=== PATIENT | male | born 1995 | race Caucasian/White ===

== ENCOUNTER 2019-07-15 08:47 | Inpatient (IN) | payer OTHER, SELFPAY ==
[2019-07-15] MEDS ORDERED: ONDANSETRON 4 MG/2 ML VIAL ONE (09:34)
[2019-07-15] MEDS ORDERED: NA CHLORIDE 0.9% 1,000 ML ONE ×2 (09:34→10:43)
[2019-07-15] MEDS ORDERED: KETOROLAC 30 MG/ML INJ ONE (09:34)
[2019-07-15 09:56] LABS: Absolute Lymphocytes (CBC) 0.4 K/uL (0.7-4.9); Basophils % 0.3 % (0-1.3); Hematocrit 49.9 % (39.6-49.0); Lymphocytes % 1.7 % (15.3-44.8); MPV 9.4 fL (7.6-11.3); RBC Red Blood Cell Count 6.01 M/uL (4.33-5.43)
[2019-07-15 10:07] LABS: Albumin 4.3 g/dL (3.4-5.0); Bilirubin Direct 0.6 mg/dL (0-0.2); Potassium 3.6 mmol/L (3.5-5.1); Protein, Total 8.6 g/dL (6.4-8.2)
--- NOTE | 2019-07-15 10:56 | RAD REPORT ---
EXAM DESCRIPTION: CT - Stone Protocol - 07/15/2019 10:28 am CLINICAL HISTORY: Flank pain. ABD PAIN COMPARISON: No comparisons TECHNIQUE: Axial images were obtained without oral or IV contrast. Lack of contrast limits solid org an and vascular assessment. The [id number] spans the entirety of the system partially obscuring uppermost abdomen and lung bases. Coronal reformatted images were obtained and reviewed. All CT scans are performed using dose optimization technique as appropriate and may include automated exposure control or mA/KV adjustment according to patient size. FINDINGS: The lower lung buitrago are clear. Imaged portions of the liver and spleen show no suspicious findings on non-contrast imaging. The panc reas and adrenal glands are normal. No pathologic lymphadenopathy in the abdomen or pelvis. No urinar y tract stones or obstructive uropathy. There is distention and fluid-filled small bowel surround the abdomen. This may be related to a diffu se ileus. Fluid-filled distended colon also present. Large calcification measuring 13 mm is present likely representing a large appendicolith. Several air collections in the right lower quadrant are seen. Assessment in this region is limited by lack of co ntrast however the perforated appendicitis is suspected. No significant bony abnormality. IMPRESSION: Large appendicolith is noted in the right lower quadrant with findings suspicious for a perforated appendix. Diffuse distention of large and small bowel which is fluid-filled suspected repr esent a secondary ileus.
--- NOTE | 2019-07-15 11:10 | EDPHYS ---
Physician Documentation [facility] Name: Keenan Lopez Age: 23 yrs Sex: Male : 1995 Arrival Date: 07/15/2019 Time: 08:52 Bed 20 Private MD: ED Physician Jamie Mccall HPI: 07/15 09:27 This 23 yrs old Male presents to ER via Unassigned with complaints of kb Abdominal Pain, Vomiting/Diarrhea, Fever. 09:27 The patient presents with abdominal pain that is diffuse. Onset: The symptoms/episode kb began/occurred 3 day(s) ago. The symptoms do not radiate. Associated signs and symptoms: Pertinent positives: nausea, vomiting, and diarrhea, fever. The symptoms are described as constant, waxing/waning. Modifying factors: The symptoms are alleviated by nothing, the symptoms are aggravated by nothing. Severity of pain: At its worst the pain was moderate in the emergency department the pain is unchanged. The patient has not experienced similar symptoms in the past. The patient has not recently seen a physician. Pt reports he ate some wings at noon on Saturday and felt a knot in his stomach right afterwards. STarted vomiting at 1999 night and continues today. Also reports diarrhea, diffuse abd pain and fever (TMAX 101.4). Historical: - Allergies: 09:28 No Known Allergies; ch - Home Meds: 09: None [Active]; ch - PMHx: : None; ch - PSHx: 09: None; ch - Immunization history:: Adult Immunizations up to date. - Social history:: Smoking status: Patient/guardian denies using tobacco. - Ebola Screening: : Patient negative for fever greater than or equal to 101.5 degrees Fahrenheit, and additional compatible Ebola Virus Disease symptoms Patient denies exposure to infectious person Patient denies travel to an Ebola-affected area in the 21 days before illness onset No symptoms or risks identified at this time. ROS: 09:27 Neck: Negative for injury, pain, and swelling, Cardiovascular: Negative for chest pain, kb palpitations, and edema, Respiratory: Negative for shortness of breath, cough, wheezing, and pleuritic chest pain, Back: Negative for injury and pain, : Negative for injury, bleeding, discharge, and swelling, MS/Extremity: Negative for injury and deformity, Skin: Negative for injury, rash, and discoloration, Neuro: Negative for headache, weakness, numbness, tingling, and seizure. 09: Constitutional: Positive for chills, fever. : Abdomen/GI: Positive for abdominal pain, nausea, vomiting, and diarrhea. Exam: : Constitutional: This is a well developed, well nourished patient who is awake, alert, kb and in no acute distress. Head/Face: Normocephalic, atraumatic. ENT: Nares patent. No nasal discharge, no septal abnormalities noted. Tympanic membranes are normal and external auditory canals are clear. Oropharynx with no redness, swelling, or masses, exudates, or evidence of obstruction, uvula midline. Mucous membranes moist. Neck: Trachea midline, no thyromegaly or masses palpated, and no cervical lymphadenopathy. Supple, full range of motion without nuchal rigidity, or vertebral point tenderness. No Meningismus. Chest/axilla: Normal chest wall appearance and motion. Nontender with no deformity. No lesions are appreciated. Cardiovascular: Regular rate and rhythm with a normal S1 and S2. No gallops, murmurs, or rubs. Normal PMI, no JVD. No pulse deficits. Respiratory: Lungs have equal breath sounds bilaterally, clear to auscultation and percussion. No rales, rhonchi or wheezes noted. No increased work of breathing, no retractions or nasal flaring. Back: No spinal tenderness. No costovertebral tenderness. Full range of motion. Skin: Warm, dry with normal turgor. Normal color with no rashes, no lesions, and no evidence of cellulitis. MS/ Extremity: Pulses equal, no cyanosis. Neurovascular intact. Full, normal range of motion. Neuro: Awake and alert, GCS 15, oriented to person, place, time, and situation. Cranial nerves II-XII grossly intact. Motor strength 5/5 in all extremities. Sensory grossly intact. Cerebellar exam normal. Normal gait. : Abdomen/GI: Inspection: abdomen appears normal, Bowel sounds: normal, in all quadrants, Palpation: soft, in all quadrants, nontender, in the right upper quadrant, moderate abdominal tenderness, in the left upper quadrant, right lower quadrant and left lower quadrant. Vital Signs: : BP 106 / 62; Pulse 130; Resp 22; Temp 99.6(O); Pulse Ox 95% on R/A; Pain 8/10; ch 10:07 BP 105 / 81; Pulse 100; Resp 18; Pulse Ox 97% on R/A; ch 11:48 BP 111 / 86; Pulse 95; Resp 18; Temp 100; Pulse Ox 97% on R/A; Pain 3/10; ch MDM: 09:10 Patient medically screened. kb 09:27 Data reviewed: vital signs, nurses notes. Data interpreted: Pulse oximetry: on room air kb is 100 %. Interpretation: normal. 11:08 Counseling: I had a detailed discussion with the patient and/or guardian regarding: the kb historical points, exam findings, and any diagnostic results supporting the discharge/admit diagnosis, lab results, radiology results, the need for further work-up and treatment in the hospital. Physician consultation: Ephraim Escobar MD was contacted at 11:08, regarding admission, to the medical/surgical unit. patient's condition, and will see patient shortly. 07/15 09:17 Order name: Basic Metabolic Panel; Complete Time: 10:10 kb 07/15 09:17 Order name: CBC with Diff; Complete Time: 11:18 kb 07/15 09:17 Order name: Hepatic Function; Complete Time: 10:10 kb 07/15 09:17 Order name: Lipase; Complete Time: 10:10 kb 07/15 09:17 Order name: Flu; Complete Time: 10:05 kb 07/15 09:17 Order name: Strep; Complete Time: 10:00 kb 07/15 09:17 Order name: [place] Screen Profile; Complete Time: 10:30 kb 07/15 09:58 Order name: Throat Culture EDMS 07/15 10:13 Order name: CT Stone Protocol; Complete Time: 11:01 kb 07/15 11:17 Order name: Manual Differential; Complete Time: 11:18 EDMS 07/15 09:17 Order name: IV Saline Lock; Complete Time: 09:31 kb 07/15 09:17 Order name: Labs collected and sent; Complete Time: 09:31 kb Administered Medications: 09:40 Drug: NS 0.9% 1000 ml Route: IV; Rate: 1000 ml; Site: right forearm; jl7 10:08 Follow up: IV Status: Completed infusion; IV Intake: 1000ml 09:40 Drug: Zofran 4 mg Route: IVP; Site: right forearm; jl7 10:08 Follow up: Response: No adverse reaction; Marked relief of symptoms 09:42 Drug: TORadol - Ketorolac 15 mg Route: IVP; Site: right forearm; jl7 10:08 Follow up: Response: No adverse reaction 10:45 Drug: NS 0.9% 1000 ml Route: IV; Rate: 1000 ml; Site: right forearm; 11:27 Drug: Zosyn 3.375 grams Route: IVPB; Infused Over: 60 mins; Site: right forearm; Disposition: 11:09 Co-signature as Attending Physician, Jamie Mccall MD I agree with the assessment and kdr plan of care. Disposition: 07/15/19 11:09 Hospitalization ordered by Ephraim Escobar for Inpatient Admission. Preliminary diagnosis is Acute appendicitis - with perforation. - Bed requested for Telemetry/MedSurg (Inpatient). - Status is Inpatient Admission. - Condition is Stable. - Problem is new. - Symptoms are unchanged. UTI on Admission? No Signatures: Dispatcher [employer] EDMS Melisa Guthrie, BASKETBALL REFEREE-C BASKETBALL REFEREE-Ckb Rosanne Gill, RN RN Lisa Albarran RN RN Jamie Mccall MD MD [facility] Kirsty Barger RN RN jl7 Corrections: (The following items were deleted from the chart) 12:13 11:09 Hospitalization Ordered by Ephraim Escobar MD for Inpatient Admission. Preliminary diagnosis is Acute appendicitis - with perforation. Bed requested for Telemetry/MedSurg (Inpatient). Status is Inpatient Admission. Condition is Stable. Problem is new. Symptoms are unchanged. UTI on Admission? No. kb 12:25 12:13 07/15/2019 11:09 Hospitalization Ordered by Ephraim Escobar MD for Inpatient Admission. Preliminary diagnosis is Acute appendicitis - with perforation. Bed requested for Telemetry/MedSurg (Inpatient). Status is Inpatient Admission. Condition is Stable. Problem is new. Symptoms are unchanged. UTI on Admission? No. dw
--- NOTE | 2019-07-15 11:10 | ER ---
Nurse's Notes [facility] Name: Keenan Lopez Age: 23 yrs Sex: Male : 1995 Arrival Date: 07/15/2019 Time: 08:52 Bed 20 Private MD: Diagnosis: Acute appendicitis-with perforation Presentation: 07/15 09:27 Presenting complaint: Patient states: abdominal pain diarrhea fever since saturday. Transition of care: patient was not received from another setting of care. Onset of symptoms was July 12, 2019. Risk Assessment: Do you want to hurt yourself or someone else? Patient reports no desire to harm self or others. Initial Sepsis Screen: Does the patient meet any 2 criteria? No. Patient's initial sepsis screen is negative. Does the patient have a suspected source of infection? No. Patient's initial sepsis screen is negative. Care prior to arrival: None. 09:27 Method Of Arrival: Ambulatory 09:27 Acuity: PRIYANK 3 Triage Assessment: 09:28 General: Appears in no apparent distress. uncomfortable, Behavior is cooperative, ch appropriate for age. Pain: Complains of pain in abdomen. Neuro: No deficits noted. GI: Abdomen is flat, non-distended, Bowel sounds present X 4 quads. Abd is soft X 4 quads Abdomen is tender to palpation X 4 quads. Historical: - Allergies: 09:28 No Known Allergies; - Home Meds: :28 None [Active]; ch - PMHx: 09:28 None; ch - PSHx: 09:28 None; - Immunization history:: Adult Immunizations up to date. - Social history:: Smoking status: Patient/guardian denies using tobacco. - Ebola Screening: : Patient negative for fever greater than or equal to 101.5 degrees Fahrenheit, and additional compatible Ebola Virus Disease symptoms Patient denies exposure to infectious person Patient denies travel to an Ebola-affected area in the 21 days before illness onset No symptoms or risks identified at this time. Screenin:06 Abuse screen: Denies threats or abuse. Denies injuries from another. Nutritional jl7 screening: No deficits noted. Tuberculosis screening: No symptoms or risk factors identified. Fall Risk IV access (20 points). Total Milligan Fall Scale indicates No Risk (0-24 pts). Assessment: 10:07 Reassessment: Patient appears in no apparent distress at this time. Patient and/or ch family updated on plan of care and expected duration. Pain level reassessed. Patient is alert, oriented x 3, equal unlabored respirations, skin warm/dry/pink. Patient states feeling better. Patient states symptoms have improved. 11:00 Reassessment: Patient appears in no apparent distress at this time. pt is still pale ch and mildly diaphoretic. pt is quiet in bed. pt states he feels better, but does not feel well. 11:48 Reassessment: Patient appears in no apparent distress at this time. Patient and/or ch family updated on plan of care and expected duration. Pain level reassessed. Patient is alert, oriented x 3, equal unlabored respirations, skin warm/dry/pink. pt has been seen by the surgeon. pt changing and removing all clothes and jewelry Patient states feeling better. Patient states symptoms have improved. General: Appears in no apparent distress. comfortable. Neuro: No deficits noted. Respiratory: Airway is patent Respiratory effort is even, unlabored, Breath sounds are clear bilaterally. GI: No signs and/or symptoms were reported involving the gastrointestinal system. Derm: Skin is pale. Vital Signs: 09:28 BP 106 / 62; Pulse 130; Resp 22; Temp 99.6(O); Pulse Ox 95% on R/A; Pain 8/10; ch 10:07 BP 105 / 81; Pulse 100; Resp 18; Pulse Ox 97% on R/A; ch 11:48 BP 111 / 86; Pulse 95; Resp 18; Temp 100; Pulse Ox 97% on R/A; Pain 3/10; ch ED Course: 08:52 Patient arrived in ED. mr 08:58 Melisa Guthrie, MANAGER SALES SUPPORT-C [facility] kb 08:58 Jamie Mccall MD is Attending Physician. kb 09:26 Rosanne Gill, KARL is Primary Nurse. ch 09:28 Triage completed. ch 09:28 Arm band placed on left wrist. Patient placed in an exam room, on a stretcher, on pulse ch oximetry. 09:35 Initial lab(s) drawn, by me, sent to lab. Inserted saline lock: 20 gauge in right jl7 forearm, using aseptic technique. Blood collected. 10:06 Patient has correct armband on for positive identification. Bed in low position. Call jl7 light in reach. Side rails up X 1. Pulse ox on. NIBP on. 10:28 CT Stone Protocol In Process Unspecified. EDMS 11:09 Ephraim Escobar MD is Hospitalizing Provider. kb 11:48 Warm blanket given. ch 11:48 No provider procedures requiring assistance completed. Patient admitted, IV remains in place. Administered Medications: 09:40 Drug: NS 0.9% 1000 ml Route: IV; Rate: 1000 ml; Site: right forearm; jl7 10:08 Follow up: IV Status: Completed infusion; IV Intake: 1000ml ch 09:40 Drug: Zofran 4 mg Route: IVP; Site: right forearm; jl7 10:08 Follow up: Response: No adverse reaction; Marked relief of symptoms ch 09:42 Drug: TORadol - Ketorolac 15 mg Route: IVP; Site: right forearm; jl7 10:08 Follow up: Response: No adverse reaction ch 10:45 Drug: NS 0.9% 1000 ml Route: IV; Rate: 1000 ml; Site: right forearm; ch 11:27 Drug: Zosyn 3.375 grams Route: IVPB; Infused Over: 60 mins; Site: right forearm; Intake: 10:08 IV: 1000ml; Total: 1000ml. Outcome: 11:09 Decision to Hospitalize by Provider. kb 12:20 Admitted to accompanied by nurse, via wheelchair, with chart, Report called to sent to Surgery, report given at bedside to sx RN 12:20 Condition: stable 12:20 Instructed on the need for admit. 12:25 Patient left the ED. Signatures: Dispatcher [employer] EDMelisa Mandujano, MANAGER SALES SUPPORT-C MANAGER SALES SUPPORT-CkRosanne Howard, RN RN Seth, Kirsty Darby, RN RN jl7 Corrections: (The following items were deleted from the chart) 15:34 11:56 Reassessment: Patient appears in no apparent distress at this time. pt is still ch pale and mildly diaphoretic. pt is quiet in bed. pt states he feels better, but does not feel well.
[2019-07-15 11:17] LABS: Blood Morphology Comment NOT SEEN (NOT SEEN); Platelet Estimate ADEQ
[2019-07-15] MEDS ORDERED: PIPER/TAZO/NS 3.375gm 3.375 GM/100 ML BAG ONE (11:31)
[2019-07-15] MEDS ORDERED: Ringers Lactate 1,000 ML IV ONE ×2 (12:06→14:52)
[2019-07-15] MEDS ORDERED: LIDOCAINE 2% MPF 5 ML VIAL IV ONE (12:25)
[2019-07-15] MEDS ORDERED: PROPOFOL 200 MG/20 ML VIAL IV ONE (12:25)
[2019-07-15] MEDS ORDERED: FENTANYL CITR 100 MCG/2 ML IV ONE (12:25)
[2019-07-15] MEDS ORDERED: MIDAZOLAM HCL 2 MG/2 ML INJ IV ONE (12:25)
[2019-07-15] MEDS ORDERED: ONDANSETRON 4 MG/2 ML VIAL IV ONE (12:28)
[2019-07-15] MEDS ORDERED: ROCURONIUM 50 MG/5 ML VIAL IV STA (12:29)
[2019-07-15] MEDS ORDERED: MORPHINE 4 MG/ML SYR IV PRN (12:50)
[2019-07-15] MEDS ORDERED: ONDANSETRON 4 MG/2 ML VIAL IV PRN (12:50)
[2019-07-15] MEDS ORDERED: LIDOCAINE JELLY 2%- 5 ML TUBE ONE (14:13)
[2019-07-15] MEDS ORDERED: FENTANYL CITR 100 MCG/2 ML ONE (14:26)
[2019-07-15] MEDS ORDERED: GLYCOPYRROLATE 0.2 MG/ML SYR ONE (14:47)
[2019-07-15] MEDS ORDERED: NEOSTIGMINE 1 MG/ML -10 ML VIAL ONE (14:59)
--- NOTE | 2019-07-15 14:59 | P.OP ---
Feedmobile Driver: Joe MISTRY Preoperative diagnosis: Acute Perforated Appendicitis Postoperative diagnosis: same Primary procedure: Lap Appy Anesthesia: General Estimated blood loss: min Specimen: Appy Findings: as above Complications: None Transferred to: Recovery Room Condition: Good
[2019-07-15] MEDS ORDERED: HYDROCODONE/APAP 7.5/325 MG TAB PO PRN (15:05)
[2019-07-15] MEDS ORDERED: MEPERIDINE HCL 25 MG/0.5 ML ONE (15:12)
[2019-07-15] MEDS: NA CHLORIDE 0.9% 1,000 ML IV SCH ×2 (15:52→20:12)
[2019-07-15 15:54] VITALS: BMI 21.5
--- NOTE | 2019-07-15 16:17 | CON ---
Date of Consultation: 07/15/2019 Reason: Abdominal pain. History Of Present Illness: The patient is a 23-year-old gentleman comes in with 2-day history of di ffuse abdominal pain mostly on the right chest associated with nausea and vomiting, constipation, occ asional diarrhea. No blood in the stool. No dysuria or hematuria. He has had some fevers at home. Does have anorexia and never had pain like this before. Review of Systems: Otherwise unremarkable. Past Medical History: Negative. Past Surgical History: Negative. Allergies: NO ALLERGIES. Social History: Denies smoking or drinking. Family History: Noncontributory. Physical Examination: Vital Signs: Stable. Currently, temperature is 97.6. General: He is awake, alert, oriented x3. Head and Neck: Cranial nerves 2 through 12 are grossly within normal limits. No neck masses. No JV D. Throat clear. Neck is supple. Chest: Clear. Heart: S1, S2. Abdomen: Soft, nondistended, positive tenderness in the right lower quadrant. There is rebound, rig idity, and guarding. No abdominal wall hernia appreciated. Extremities: Adequately perfused. Nontender. Neurologic: Nonfocal. Laboratory Data: White count is 22.4 with a left shift. Chemistry reviewed, dehydrated. CT of the abdomen and pelvis reviewed, which shows a large pedicle noted in the right lower quadrant with findi ngs suspicious for a perforated appendix, diffuse distention of large and small bowel, which is fluid filled suspected presumably secondary to ileus. Assessment: Acute perforated appendicitis. Plan: Admit n.p.o., IV fluid, IV antibiotic. To the OR for lap appe possible open. The patient und erstands the risks, benefits, and alternatives and agrees to procedure. /MODL Voice ID: [id number] Report ID: [id number]
[2019-07-15] MEDS: PIPER/TAZO/NS 3.375gm 3.375 GM/100 ML BAG IVPB SCH (17:47)
[2019-07-15] MEDS ORDERED: POTASSIUM CL SA 10 MEQ TAB PO ONE (20:00)
[2019-07-15] MEDS: ONDANSETRON 4 MG/2 ML VIAL IV PRN (21:56)
[2019-07-15] MEDS: HYDROMORPHONE HCL 1 MG/ML INJ IV PRN (23:45)
[2019-07-16] MEDS: PIPER/TAZO/NS 3.375gm 3.375 GM/100 ML BAG IVPB SCH ×3 (00:02→17:06)
--- NOTE | 2019-07-16 02:04 | OP ---
Date of Procedure: 07/15/2019 Surgeon: Ephraim Escobar MD Clinic Physician Director: FEDE Jones. Preopeative Diagnosis: Acute perforated appendicitis. Postoperative Diagnosis: Acute perforated appendicitis. Procedure: Laparoscopic appendectomy. Estimated Blood Loss: Minimal. Specimens: Appendix. Findings: As above. Anesthesia: General. Complications: None. Disposition: Patient tolerated the procedure in stable condition, taken to Recovery in good general condition. Procedure In Detail: Patient was brought to the OR and placed in supine position. General anesthesi a begun. Patient was prepped and draped in the usual sterile fashion. Marcaine 0.5% was infiltrated locally, a 15 blade was used to make a 1 cm supraumbilical midline incision. Subcutaneous tissues w ere divided. The fascia was identified and divided. A #1 Vicryl stay suture was placed. Peritoneal cavity was entered with sharp and blunt dissection. 12 mm trocar placed into the peritoneal cavity under direct vision. Pneumoperitoneum was established. Then two 5 trocars were placed, 1 in the sup rapubic region, 1 in the left lower quadrant. Under direct vision. Laparoscopy revealed marked sepa ration throughout the abdomen, the right pericolic gutter, the left pericolic gutter, pelvis, and the right subhepatic space. In the left upper quadrant near the spleen. All of this was aspirated and irrigated with clean saline until all effluent was clear and appendix was identified. There was an a rafal of necrosis in the mid appendix, base of the appendix and the cecum looked very healthy as did th e mesoappendix and this was divided with Endo-SINGH stapling device. The appendix was removed and sent to Pathology consistent with perforated appendicitis. Subsequently entire abdomen was irrigated aga in, the effluent was clear. There was no abscess formation anywhere, so there was no need to put a d rain in. Complete irrigation of the abdomen revealed absolutely clear saline in returned. Subsequen tly, all trocars were removed under direct vision. Stay sutures were tied to each other to reapproxi mate the fascial defect. Subcutaneous wounds were irrigated. Bleeding controlled with cautery. 3-0 chromic used to approximate the subcutaneous tissue and danish used to close the skin. Sterile jase ssing was applied. Patient was awakened and taken to Recovery in good general condition. CITLALI/HOMAR Voice ID: [id number] Report ID: [id number]
[2019-07-16] MEDS: HYDROMORPHONE HCL 1 MG/ML INJ IV PRN ×3 (03:09→18:22)
[2019-07-16 04:31] LABS: Magnesium 1.8 mg/dL (1.8-2.4); Phosphorus 2.6 mg/dL (2.5-4.9)
[2019-07-16 04:34] LABS: Absolute Lymphocytes (CBC) 0.6 K/uL (0.7-4.9); Basophils % 0.1 % (0-1.3); Hematocrit 40.4 % (39.6-49.0); Lymphocytes % 4.4 % (15.3-44.8); MPV 9.4 fL (7.6-11.3); RBC Red Blood Cell Count 4.83 M/uL (4.33-5.43)
[2019-07-16] MEDS: NA CHLORIDE 0.9% 1,000 ML IV SCH ×2 (05:00→11:40)
[2019-07-16] MEDS ORDERED: MAGNESIUM SULFATE 1 gm IVPB 1 GM/100 ML BAG IV ONE (08:00)
--- NOTE | 2019-07-16 08:04 | RAD REPORT ---
EXAM DESCRIPTION: RAD - Abdomen W Erect - 07/16/2019 7:46 am CLINICAL HISTORY: nausea and vomiting Suspected perforated appendicitis COMPARISON: Stone Protocol dated 07/15/2019 TECHNIQUE: Supine and upright views of the abdomen were obtained. FINDINGS: NG tube is in place curled in the stomach. Stomach is decompressed. Multiple air-fluid lev els are seen in the small bowel. Dilated small bowel loops are present. No pneumatosis. No abnormal f ree air collection. Skin danish are in place from laparoscopic port access sites. IMPRESSION: Dilated small bowel loops similar or slightly more prominent than seen on the pre-surgic al examination July 15. Small bowel ileus is favored over obstruction. Follow-up can be obtained as clinically warranted. NG tube is in place in the stomach. Stomach is decompressed.
--- NOTE | 2019-07-16 11:15 | PN ---
Date of Progress Note: 07/16/2019 Subjective: Patient had nausea and vomiting last night. I advised him to put an NG tube, keep him n .p.o., and get an x-ray this morning. He is not passing gas. He feels better after the NG tube was put in. He vomited a little over 1/2 liter and then has put out about 200 since the NG tube was plac ed. His nausea and vomiting have resolved. His pain is minimal. Physical Examination: Vital Signs: Stable. He is afebrile, but temperature is 100.3 this morning. Abdomen: Soft. Hypoactive bowel sounds. Slightly distended. Assessment: Status post laparoscopic appendectomy for perforated appendicitis with mild ileus. Plea se note, x-ray done this morning confirms that no evidence of obstruction. Patient had significant a mount of purulence in his abdomen yesterday, and so this is unexpected. Recommendations: N.p.o., NG tube, IV fluid, IV antibiotics. Encourage ambulation. It is noted his white count is down to 12.6 and his left shift has improved as well. So clinically, he is a little b aleksandr, but he needs to recover from his prolonged ileus. /MODL Voice ID: [id number] Report ID: [id number]
[2019-07-16] MEDS: ONDANSETRON 4 MG/2 ML VIAL IV PRN (18:28)
[2019-07-17] MEDS: PIPER/TAZO/NS 3.375gm 3.375 GM/100 ML BAG IVPB SCH ×3 (01:00→16:34)
[2019-07-17] MEDS: HYDROMORPHONE HCL 1 MG/ML INJ IV PRN ×4 (01:03→20:43)
[2019-07-17] MEDS: ONDANSETRON 4 MG/2 ML VIAL IV PRN ×4 (01:04→20:52)
[2019-07-17] MEDS: NA CHLORIDE 0.9% 1,000 ML IV SCH ×3 (06:13→18:37)
[2019-07-17 09:22] LABS: Absolute Lymphocytes (CBC) 0.8 K/uL (0.7-4.9); Basophils % 0.2 % (0-1.3); Hematocrit 40.8 % (39.6-49.0); Lymphocytes % 7.2 % (15.3-44.8); MPV 8.7 fL (7.6-11.3); RBC Red Blood Cell Count 4.83 M/uL (4.33-5.43)
[2019-07-17 09:44] LABS: Magnesium 2.1 mg/dL (1.8-2.4); Phosphorus 1.3 mg/dL (2.5-4.9); Potassium 3.4 mmol/L (3.5-5.1)
--- NOTE | 2019-07-17 15:29 | PN ---
Date of Progress Note: 07/17/2019 Subjective: Patient is awake, alert, passing gas, having bowel movements, is hungry. No abdominal p ain. NG tube put out minimal amount last shift. Objective: Vital Signs: Stable. Afebrile. Abdomen: Benign. Assessment: Status post laparoscopic appendectomy for perforated appendicitis. Plan: Discontinue NG tube. Start clear liquids. Advance as tolerated. Continue IV antibiotics. I t is noted patient's white count is almost normalized. Patient is doing clinically well. Hopefully discharge in 24 to 48 hours. /MODL Voice ID: [id number] Report ID: [id number]
[2019-07-17] MEDS ORDERED: PANTOPRAZOLE 40 MG INJ IVP ONE (23:37)
[2019-07-17] MEDS ORDERED: SODIUM CHLORIDE 0.9% 10ML INJ IV PRN (23:37)
[2019-07-18] MEDS: MAGNES/ALUMIN/SIMET 30ML UCUP PO PRN ×3 (00:14→20:18)
[2019-07-18] MEDS: PIPER/TAZO/NS 3.375gm 3.375 GM/100 ML BAG IVPB SCH ×3 (01:34→16:34)
[2019-07-18] MEDS: HYDROMORPHONE HCL 1 MG/ML INJ IV PRN ×3 (03:34→23:16)
[2019-07-18] MEDS: ONDANSETRON 4 MG/2 ML VIAL IV PRN ×3 (03:34→20:24)
[2019-07-18] MEDS: NA CHLORIDE 0.9% 1,000 ML IV SCH ×4 (05:00→21:00)
[2019-07-18 05:40] LABS: Absolute Lymphocytes (CBC) 0.7 K/uL (0.7-4.9); Basophils % 0.1 % (0-1.3); Hematocrit 37.4 % (39.6-49.0); Lymphocytes % 6.4 % (15.3-44.8); MPV 8.6 fL (7.6-11.3); RBC Red Blood Cell Count 4.45 M/uL (4.33-5.43)
[2019-07-18] MEDS: PANTOPRAZOLE 40 MG INJ IVP SCH (08:08)
[2019-07-18] MEDS ORDERED: POTASSIUM 25 MEQ EFFERV TAB PO ONE (09:00)
[2019-07-18] MEDS ORDERED: POTASS/SODIUM PHOSPHATE 1 PKT POWD.PACK PO SCH (09:00)
--- NOTE | 2019-07-18 10:18 | PN ---
Date of Progress Note: 07/18/2019 Subjective: Patient had acid reflux last night, threw up a little bit, was given Protonix and Maalox , feels better. Physical Examination: Vital Signs: Stable. Afebrile. Abdomen: Benign. Laboratory Data: White count is normal. Assessment: Status post laparoscopic appendectomy for perforated appendicitis with ileus. Recommendation: Encourage ambulation, incentive spirometry, IV antibiotics. Advance diet as tolerat ed and symptomatic treatment of his acid reflux. /MODL Voice ID: [id number] Report ID: [id number]
[2019-07-18 11:28] LABS: Potassium 3.7 mmol/L (3.5-5.1)
[2019-07-18] MEDS: POTASS/SODIUM PHOSPHATE 1 PKT POWD.PACK PO SCH ×3 (12:44→14:00)
[2019-07-19] MEDS: PIPER/TAZO/NS 3.375gm 3.375 GM/100 ML BAG IVPB SCH ×3 (00:48→15:54)
[2019-07-19] MEDS: NA CHLORIDE 0.9% 1,000 ML IV SCH ×5 (00:49→21:00)
[2019-07-19 06:12] LABS: Absolute Lymphocytes (CBC) 0.8 K/uL (0.7-4.9); BUN Blood Urea Nitrogen 14 mg/dL (7-18); Basophils % 0.1 % (0-1.3); Bicarbonate 35 mmol/L (21-32); Glucose Level 107 mg/dL (74-106); Hematocrit 35.1 % (39.6-49.0); Lymphocytes % 10.9 % (15.3-44.8); MPV 8.8 fL (7.6-11.3); Phosphorus 1.8 mg/dL (2.5-4.9); Potassium 3.4 mmol/L (3.5-5.1); RBC Red Blood Cell Count 4.19 M/uL (4.33-5.43); Sodium Level 139 mmol/L (136-145)
[2019-07-19] MEDS: HYDROMORPHONE HCL 1 MG/ML INJ IV PRN ×3 (08:03→17:16)
[2019-07-19] MEDS: PANTOPRAZOLE 40 MG INJ IVP SCH (08:03)
[2019-07-19] MEDS: ONDANSETRON 4 MG/2 ML VIAL IV PRN ×2 (08:04→17:16)
[2019-07-19] MEDS ORDERED: POTASSIUM CL SA 10 MEQ TAB PO ONE ×2 (09:00→20:00)
[2019-07-19] MEDS ORDERED: POTASSIUM PHOS IN 0.9 % NACL 15 MMOL/250 ML BAG IV ONE (09:00)
--- NOTE | 2019-07-19 09:56 | RAD REPORT ---
EXAM DESCRIPTION: RAD - Abdomen Acute Series - 07/19/2019 9:42 am CLINICAL HISTORY: Abdominal pain FINDINGS: Free air is not seen beneath the diaphragm. Lungs appear clear Moderate dilatation of jejunum and portion of the ileum is present. Air within the colon is not seen. These findings may represent a mechanical small bowel obstruction. Given the recent surgery this coul d alternatively indicate an adynamic ileus.
--- NOTE | 2019-07-19 11:10 | PN ---
Date of Progress Note: 07/19/2019 Subjective: Patient is awake, alert, and vomited last night again. No significant pain, nausea prio r to vomiting. He is passing gas, having bowel movements though. Objective: Vital Signs: Stable. His temperature is 99.2 this morning. Abdomen: Soft, slightly distended. Positive bowel sounds. Dressing is clean, dry, and intact. Laboratory Data: Reveals his white count to be normal. There is no left shift. Chemistry reviewed, he has low phosphorus and potassium being replaced per protocol. Assessment: Status post laparoscopic appendectomy for perforated appendicitis. Recommendation: The patient probably has prolonged ileus. Therefore, we will get an x-ray to assess that. Encourage ambulation, incentive spirometry. Sips of clear liquids right now. It may take se veral days to improve as he had lots of purulence in his abdomen as part of the surgical findings, so I think the prolonged ileus will take some time. CITLALI/MODL Voice ID: [id number] Report ID: [id number]
[2019-07-20] MEDS: PIPER/TAZO/NS 3.375gm 3.375 GM/100 ML BAG IVPB SCH ×3 (00:12→16:44)
[2019-07-20 04:17] LABS: Absolute Lymphocytes (CBC) 0.9 K/uL (0.7-4.9); Basophils % 0.2 % (0-1.3); Hematocrit 35.4 % (39.6-49.0); Lymphocytes % 9.9 % (15.3-44.8); MPV 8.8 fL (7.6-11.3); RBC Red Blood Cell Count 4.26 M/uL (4.33-5.43)
[2019-07-20 04:34] LABS: BUN Blood Urea Nitrogen 12 mg/dL (7-18); Bicarbonate 29 mmol/L (21-32); Glucose Level 89 mg/dL (74-106); Magnesium 2.1 mg/dL (1.8-2.4); Phosphorus 2.2 mg/dL (2.5-4.9); Potassium 3.8 mmol/L (3.5-5.1); Sodium Level 137 mmol/L (136-145)
[2019-07-20] MEDS: POTASS/SODIUM PHOSPHATE 1 PKT POWD.PACK PO SCH ×4 (05:22→07:00)
[2019-07-20] MEDS: NA CHLORIDE 0.9% 1,000 ML IV SCH ×4 (05:23→22:37)
[2019-07-20] MEDS ORDERED: POTASSIUM CL SA 10 MEQ TAB PO ONE (06:00)
--- NOTE | 2019-07-20 08:17 | RAD REPORT ---
EXAM DESCRIPTION: RAD - Abdomen W Erect - 07/20/2019 7:31 am CLINICAL HISTORY: Abdominal pain FINDINGS: Moderate dilatation of small bowel loops mildly diminished in caliber since July 19. Areas now visualized within portions of the colon. No free air seen. These findings likely either represent mild improving ileus or mild improvement of a partial small nereida wel obstruction.
[2019-07-20] MEDS: PANTOPRAZOLE 40 MG INJ IVP SCH (08:33)
--- NOTE | 2019-07-20 14:22 | PN ---
Date of Progress Note: 07/20/2019 Subjective: The patient is awake, alert. No complaint. Passing gas. No nausea or vomiting. Objective: Vital Signs: Stable. Afebrile. Abdomen: Benign. Imaging: Abdominal x-ray shows improvement. Assessment: Status post laparoscopic appendectomy for perforated appendicitis. Recommendations: We will start sips of clear liquids today. Encourage ambulation and incentive spir ometry. Clinically doing well. Continue IV antibiotics. /MODL Voice ID: [id number] Report ID: [id number]
[2019-07-21] MEDS: PIPER/TAZO/NS 3.375gm 3.375 GM/100 ML BAG IVPB SCH ×3 (01:02→16:23)
[2019-07-21 04:10] LABS: Absolute Lymphocytes (CBC) 1.3 K/uL (0.7-4.9); Basophils % 0.2 % (0-1.3); Hematocrit 37.7 % (39.6-49.0); Lymphocytes % 11.2 % (15.3-44.8); MPV 8.4 fL (7.6-11.3); RBC Red Blood Cell Count 4.49 M/uL (4.33-5.43)
[2019-07-21 04:23] LABS: BUN Blood Urea Nitrogen 5 mg/dL (7-18); Bicarbonate 32 mmol/L (21-32); Glucose Level 110 mg/dL (74-106); Potassium 3.3 mmol/L (3.5-5.1); Sodium Level 139 mmol/L (136-145)
[2019-07-21] MEDS: NA CHLORIDE 0.9% 1,000 ML IV SCH (05:33)
[2019-07-21] MEDS ORDERED: POTASSIUM PHOS IN 0.9 % NACL 15 MMOL/250 ML BAG IV ONE (08:00)
[2019-07-21] MEDS ORDERED: POTASSIUM CL SA 10 MEQ TAB PO ONE (08:00)
[2019-07-21] MEDS: PANTOPRAZOLE 40 MG INJ IVP SCH (09:38)
[2019-07-21 13:32] LABS: C.diff Antigen/Toxin Ag neg : Tox neg (NEG : NEG)
--- NOTE | 2019-07-21 15:21 | PN ---
Date of Progress Note: 07/21/2019 Subjective: Patient is awake, alert. No nausea or vomiting. Tolerating liquids. Objective: Vital Signs: Stable. Afebrile. Abdomen: Benign. Laboratory Data: Reviewed. Assessment: Status post laparoscopic appendectomy for perforated appendicitis, sepsis. Recommendation: Please note, patient did have sepsis when he was admitted because of his high white count and clinical findings consistent with sepsis. We will advance his diet. Continue IV antibioti cs. Likely discharge in a.m. /MODL Voice ID: [id number] Report ID: [id number]
[2019-07-21] MEDS ORDERED: POTASSIUM 25 MEQ EFFERV TAB PO ONE (20:00)
[2019-07-22] MEDS: PIPER/TAZO/NS 3.375gm 3.375 GM/100 ML BAG IVPB SCH ×2 (00:03→07:32)
[2019-07-22 05:00] LABS: BUN Blood Urea Nitrogen 7 mg/dL (7-18); Bicarbonate 33 mmol/L (21-32); Glucose Level 96 mg/dL (74-106); Phosphorus 3.3 mg/dL (2.5-4.9); Potassium 3.3 mmol/L (3.5-5.1); Sodium Level 140 mmol/L (136-145)
[2019-07-22] MEDS: PANTOPRAZOLE 40 MG INJ IVP SCH (07:32)
[2019-07-22 07:41] VITALS: O2SAT 98
[2019-07-22] MEDS ORDERED: POTASSIUM 25 MEQ EFFERV TAB PO ONE (08:00)
[2019-07-22 08:42] VITALS: BP 113/64; TEMP 98.3
--- NOTE | 2019-07-23 06:32 | DS ---
Date of Discharge: 07/22/2019 Admitting Diagnosis: Perforated appendicitis. Discharge Diagnosis: Perforated appendicitis. Procedure Performed: Laparoscopic appendectomy. Hospital Course: Patient is a 23-year-old gentleman who was admitted with sepsis and perforated appe ndicitis. He had a prolonged ileus, which slowed his recovery. His electrolytes were checked and co rrected as needed. His diet was advanced once he started having bowel function. He is tolerating di et, ambulating, pain controlled with p.o. pain medication, afebrile, therefore patient will be discha rged to home. Disposition: Home. Condition: Stable. Discharge Instructions: Resume home medications and diet. Activity as tolerated. No heavy lifting. Remove outer dressing in a.m. Shower. Keep wound clean and dry. Follow up in my office in a week . Call for appointment. Tylenol No.3 one tablet p.o. q.4 p.r.n. pain, Cipro 500 mg p.o. q.12, Flagy l 500 mg p.o. q.8. /MODL Voice ID: [id number] Report ID: [id number]
== END 2019-07-22 12:20 | disposition home or self-care (01) | DRG 853 ==
LOC: ER 08:47 → ERHOLD 12:06 → 4TH 12:56
PROVIDERS: ADMIT Surgery; ATTEND Surgery
PROC: 0DTJ4ZZ Resection of Appendix, Percutaneous Endoscopic Approach (ICD-10-PCS; principal; 2019-07-15 13:30)
DX: A41.9 Sepsis, unspecified organism (principal); K35.32 Acute appendicitis with perforation, localized peritonitis, and gangrene, without abscess; K56.7 Ileus, unspecified; K21.9 Gastro-esophageal reflux disease without esophagitis
CPT/HCPCS: 36415; 74019; 74022; 74176; 76377; 80048; 80076; 83605; 83690; 83735; 84100; 84132; 85025; 86308; 87070; 87081; 87324; 87449; 87804; 88304; 96374; 96375; 99285; C9113; J1170; J2175; J2250; J2405; J2543; J2704; J2710; J3010; J3475; J7030; J7120

== ENCOUNTER 2021-01-27 07:56 | Day surgery (SDC) | payer SELFPAY ==
[2021-01-27] MEDS ORDERED: OXYMETAZOLINE HCL 0.05% 15ML NAS ONE ×2 (08:40→10:45)
[2021-01-27] MEDS ORDERED: Ringers Lactate 1,000 ML IV ONE (08:40)
[2021-01-27 08:55] VITALS: O2SAT 100
[2021-01-27] MEDS ORDERED: MIDAZOLAM HCL 2 MG/2 ML INJ ONE (09:55)
[2021-01-27] MEDS ORDERED: propofoL 200 MG/20 ML VIAL IV ONE (09:56)
[2021-01-27] MEDS ORDERED: FENTANYL CITR 100 MCG/2 ML ONE ×2 (09:56→13:12)
[2021-01-27] MEDS ORDERED: LIDOCAINE 2% MPF 5 ML VIAL ONE (09:56)
[2021-01-27] MEDS ORDERED: ONDANSETRON 4 MG/2 ML VIAL ONE ×2 (09:58→13:00)
[2021-01-27] MEDS ORDERED: GLYCOPYRROLATE 0.2 MG/ML SYR ONE (09:59)
[2021-01-27] MEDS ORDERED: ROCURONIUM 50 MG/5 ML VIAL IV ONE (10:00)
[2021-01-27] MEDS ORDERED: NEOSTIGMINE 1 MG/ML -5 ML ONE (10:00)
[2021-01-27] MEDS ORDERED: dexAMETHasone 10 MG/ML VIAL ONE (10:02)
[2021-01-27] MEDS ORDERED: LIDOCAINE 1% W/EPI 1:100,000 MDV 20 ML VIAL ONE (10:45)
[2021-01-27] MEDS ORDERED: NA CHLORIDE 0.9% 500 ML ONE (10:59)
--- NOTE | 2021-01-27 12:14 | P.BOP ---
Preoperative diagnosis: septal deviation, fredrick, nasal polyps, ITH Postoperative diagnosis: same Primary procedure: septoplasty Secondary procedure: fredrick resection, right. 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
[2021-01-27 13:34] VITALS: TEMP 97.4
[2021-01-27] MEDS ORDERED: TRAMADOL HCL 50 MG TAB ONE (14:19)
[2021-01-27 15:10] VITALS: BP 131/74
--- NOTE | 2021-01-28 00:38 | OP ---
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 Procedures: Septoplasty, right fredrick resection with polyp removal, and left nasal endoscopy with po lypectomy and bilateral submucous resection of inferior turbinate via submucosal microdebrider. Indication For Procedure: Keenan Lopez is a 25-year-old, who presented with nasal obstruction and hy ponasal voice, and was found to have appearance of nasal polyps on exam. He was treated with maximal medical therapy and underwent a CT of sinuses following treatment. The CT demonstrated a large righ t fredrick bullosa with attached polyp on the inferior aspect and a severe right septal spur. The risk s, benefits, and alternatives to surgery were discussed with the patient, who elected to proceed. Description Of Procedure: The patient was brought to the operating room. He was placed under genera l anesthesia via oral endotracheal tube. The head of bed was turned 90 degrees. The nasal hairs wer e trimmed and the nose was packed with Afrin-soaked pledgets. On initial nasal endoscopy, there was a large right septal spur inferiorly with a large polyp filling the right nasal cavity with polyps fi lling the middle meatus on the left. A 0-degree endoscope was used to perform a nasal endoscopy obta ining the photographs of preoperative findings. The right middle turbinate was then injected with 1% lidocaine with epinephrine and an endoscopic scissor was used to trim and remove the fredrick bullosa with attached polyp. Due to the size of the polyp, resection included removal of the majority of the inferior turbinate leaving a short stump of residual tissue. The thru-cut [place] was used to tri m excess mucosa near the attachment point and the middle meatus was packed with Afrin-soaked pledgets for several minutes. Attention was then turned to the left nasal cavity. The 0-degree endoscope wa s used to perform endoscopy and documentation of the polyps, which included significant polyps and po lypoid degeneration of the middle turbinate. The decision was made to proceed with conservative rese ction of the polyps in order to open the middle meatus. The polyps were removed using the inferior t urbinate blade of the microdebrider to conservatively resect the polypoid mucosa on the medial, infer ior, and lateral portion as well as the anterior/head of the middle turbinate until the middle turbin ate and middle meatus were better visualized. The area was then packed with Afrin-soaked pledgets an d attention was turned to the septum. The area over the right septal spur was injected with 1% lidoc [place] with epinephrine. The nasal cavity was then visualized using headlight and nasal speculum. A h orizontal incision was made along the crest of the spur and a [place] elevator was used to elevate the mucosa superiorly and inferiorly. The deviated cartilage and bone were then carefully dissected i keny Pérez rongedanielle, [place], and [place] elevator until the spur was adequately removed. The mucosa was then overlain and an Afrin-soaked pledget placed within the cavity. Pledgets were removed from the bilateral middle meatus. Nose areas were carefully inspected and noted to be hemostatic. Attent ion was then turned toward the inferior turbinates. The head of the inferior turbinates was injected with lidocaine with epinephrine. A small stab incision was made on the anterior most portion and a [place] elevator was used to develop a submucosal pocket on both the right and left inferior turbinate s. The microdebrider with the turbinate blade was used to conservatively resect this excess submucos al tissue leaving the mucosal layer intact. The adenoids were noted to be mildly enlarged, but did n ot appear to be obstructing the choana and decision was made to forego any adenoidectomy since this w as not discussed with the patient preoperatively and was not included as part of our initial operativ e plan. After removal of all pledgets and confirmation of counts, a Valle splint was placed into the right and left nasal cavity and secured using a 4-0 nylon suture. The oropharynx was thoroughly suc tioned. There was no significant bleeding noted and the patient was returned to care of anesthesia f or awakening, extubation in the operating room, which proceeded without difficulty. Complications: None. Specimens: Nasal polyp and sinus contents. Disposition: The patient will be discharged home later today in the care of his family and follow up with Dr. Gorman in 10 days for removal of splint. MILAGRO/HOMAR Voice ID: [id number] Report ID: [id number]
== END 2021-01-27 14:45 | disposition home or self-care (01) ==
LOC: OR 07:56
PROVIDERS: ATTEND Otolaryngology
PROC: 09BM8ZZ Excision of Nasal Septum, Via Natural or Artificial Opening Endoscopic (ICD-10-PCS; principal; 2021-01-27 09:15)
PROC: 09TL8ZZ Resection of Nasal Turbinate, Via Natural or Artificial Opening Endoscopic (ICD-10-PCS; 2021-01-27 09:15)
DX: J34.2 Deviated nasal septum (principal); J33.0 Polyp of nasal cavity; J34.3 Hypertrophy of nasal turbinates; Z20.822 Contact with and (suspected) exposure to COVID-19
CPT/HCPCS: 88304; 88311; J1100; J2250; J2405; J2704; J2710; J3010; J7040; J7120; U0003